=== PATIENT | male | born 1945 | race Caucasian/White ===

== ENCOUNTER 2018-01-30 07:51 | Emergency (ER) | payer OTHER ==
[2018-01-30 07:56] VITALS: BMI 31.9
--- NOTE | 2018-01-30 08:18 | PDOC ---
History of Present Illness - General Chief Complaint: Pain, Acute Stated Complaint: LIFT SIDE PAIN Time Seen by Provider: 01/30/18 08:18 History Source: Patient Exam Limitations: No Limitations - History of Present Illness Initial Comments: 01/30/18 08:41 72 year old male with PMH prostate enlargement, recent negative prostate biopsy , HTN presents to ED complaining of left flank pain and urinary retention since 0300 today. Pt denies fever, chills, dysuria, hematuria, nausea, vomiting, diarrhea, abdominal pain, weakness, numbness. PCP - Dr. Aviles Urologist - Dr. Stewart Allergies - NKDA Denies IV drug use, recreational drug use, ETOH use, and nicotine use. Past History - Past Medical History Allergies/Adverse Reactions: Allergies Allergy/AdvReac Type Severity Reaction Status Date / Time No Known Allergies Allergy Verified 01/30/18 07:56 Home Medications: Ambulatory Orders Losartan Potassium 50 mg PO DAILY 01/30/18 Propranolol HCl 60 mg PO DAILY 01/30/18 Tamsulosin HCl [Flomax] 0.4 mg PO DAILY 4 Days #4 capsule 01/30/18 COPD: No HTN: Yes Other medical history: enlarged prostate - Suicide/Smoking/Psychosocial Hx Smoking History: Never smoked Review of Systems - Review of Systems Able to Perform ROS?: Yes Comments:: 01/30/18 08:43 General: denies fever, chills, night sweats, generalized weakness. HEENT: denies sore throat, rhinorrhea, ear pain. Heart: denies chest pain, palpitations, syncope, lower extremity swelling. Respiratory: denies shortness of breath, cough, sputum production, hematemesis. Abdomen: denies abdominal pain, nausea, vomiting, diarrhea, constipation, blood in stool. : admits to urinary frequency and urinary incontinence. denies dysuria, hematuria. Back: admits to left flank pain. Musculoskeletal: denies joint pain, muscle pain, joint swelling. Neurological: denies headache, dizziness, numbness, tingling, weakness. Skin: denies rash, laceration, abrasion. *Physical Exam - Vital Signs Last Vital Signs Temp Pulse Resp BP Pulse Ox 98.1 F 57 L 18 150/84 97 01/30/18 07:52 01/30/18 07:52 01/30/18 07:52 01/30/18 07:52 01/30/18 07:52 - Physical Exam Comments: 01/30/18 08:45 Appearance: comfortable. HEENT: head is normocephalic, atraumatic. EOMI. PERRLA. Neck: supple. Full ROM. Heart: regular rhythm. no murmurs, rubs or gallops. Lungs: clear to auscultation bilaterally. no crackles, rhonchi or wheezing. no stridor. Abdomen: soft, nontender. normal bowel sounds. no rebound, guarding, masses. Back: no CVA tenderness bilaterally. Extremities: Peripheral pulses intact. No lower extremity edema. Neurological: Alert. Oriented x3. CN 2-12 grossly intact. Moves all four extremities. Skin: no rash to back or bilateral flank area. Heart Score/ECG Review - ECG Impressions Comment:: 01/30/18 10:04 Rate 61, regular rhythm, left axis, no acute ST changes. ED Treatment Course - LABORATORY CBC & Chemistry Diagram: 01/30/18 08:44 01/30/18 08:44 Medical Decision Making - Medical Decision Making 01/30/18 08:46 72 year old male with PMH prostate enlargement, recent negative prostate biopsy presents to ED complaining of left flank pain, urinary retention since 0300 today. Denies diabetes, IV drug use, fall, injury, rash. No CVA tendeness, no abdominal tenderness. Initial Vital Signs Temp Pulse Resp BP Pulse Ox 98.1 F 57 L 18 150/84 97 01/30/18 07:52 01/30/18 07:52 01/30/18 07:52 01/30/18 07:52 01/30/18 07:52 Afebrile. Bradycardic at 57. No hypotension. No hypoxia. Archibald placed for urinary retention. Pending labs, UA, UC. 01/30/18 09:44 No kidney failure - Cr 1.3, BUN 22. UA - 3+ blood, no leukocyte esterase. Pending CT abdomen noncontrast. IV fluids given. 01/30/18 09:57 No leukocytosis. *DC/Admit/Observation/Transfer Diagnosis at time of Disposition: Kidney stone - Discharge Dispostion Disposition: HOME Condition at time of disposition: Improved Decision to Admit order: No - Prescriptions Prescriptions: Tamsulosin HCl [Flomax] 0.4 mg PO DAILY 4 Days #4 capsule - Referrals Referrals: Franki Aviles MD [Primary Care Provider] - - Patient Instructions Printed Discharge Instructions: DI for Kidney Stones Additional Instructions: You were seen today for flank pain. A archibald catheter was placed into your urinary bladder and removed. Your labwork revealed no kidney dysfunction, no urinary tract infection. Your CT abdomen revealed a kidney stone. You were given Toradol for pain and intravenous fluids for hydration. You have been prescribed Flomax. Drink lots of water to stay hydrated. Please follow up with your primary care doctor within 7 days, and bring your paperwork given to you today with you. Please follow up with a urologist within 7 days, and bring your paperwork given to you today with you. Please return to the Emergency Department if you see blood in the catheter collecting system, develop fever, chills, nausea, vomiting, abdominal pain, chest pain, shortness of breath, lower leg swelling, mental status changes, urinary retention or any other new, worsening or concerning symptoms. - Post Discharge Activity
[2018-01-30 09:08] LABS: URINE APPEARANCE CLEAR; URINE BILIRUBIN NEGATIVE (<2.0 mg/dL); URINE COLOR YELLOW; URINE GLUCOSE (UA) NEGATIVE (NEGATIVE); URINE KETONE NEGATIVE (NEGATIVE); URINE LEUK ESTERASE NEGATIVE (NEGATIVE); URINE NITRITE NEGATIVE (NEGATIVE); URINE PROTEIN NEGATIVE (NEGATIVE); URINE UROBILINOGEN NEGATIVE mg/dL (0.2-1.0)
[2018-01-30 09:16] LABS: ANION GAP 6 (8-16); BILIRUBIN,TOTAL 1.2 mg/dL (0.2-1.0); BLOOD UREA NITROGEN 22 mg/dL (7-18); CALCIUM 9.2 mg/dL (8.5-10.1); CHLORIDE 106 mmol/L (98-107); CO2 28 mmol/L (21-32); CREATININE 1.3 mg/dL (0.7-1.3); GLUCOSE,RANDOM 137 mg/dL (74-106); POTASSIUM 4.4 mmol/L (3.5-5.1); SGOT/AST 23 U/L (15-37); SGPT/ALT 36 U/L (12-78); SODIUM 140 mmol/L (136-145); TOT PROT 7.6 g/dl (6.4-8.2)
[2018-01-30 09:17] LABS: ALK PHOS 82 U/L (45-117)
[2018-01-30 09:38] LABS: HEMATOCRIT 42.8 % (35.4-49); HEMOGLOBIN 15.2 GM/dL (11.7-16.9); MCH 34.5 pg (25.7-33.7); MCHC 35.6 g/dl (32.0-35.9); MEAN PLT VOLUME 8.1 fl (7.5-11.1); PLATELET COUNT 165 K/MM3 (134-434); RBC 4.41 M/mm3 (4.00-5.60); RDW 12.9 % (11.9-15.9)
[2018-01-30 09:40] LABS: WHITE BLOOD COUNT 8.3 K/mm3 (4.0-10.0)
[2018-01-30] MEDS ORDERED: SODIUM CHLORIDE 1,000 ML IV STA (09:41)
[2018-01-30] MEDS ORDERED: KETOROLAC TROMETHAMINE 15 MG/ML VIAL IVPUSH ONE (11:58)
[2018-01-30] MEDS ORDERED: KETOROLAC TROMETHAMINE 15 MG/ML VIAL ONE (12:18)
[2018-01-30 12:57] VITALS: BP 126/73; PULSE 73; TEMP 98.5
--- NOTE | 2018-01-30 13:03 | PDOC ---
Attending Attestation - Resident Resident Name: Amita Bajwa - ED Attending Attestation I have performed the following: I have examined & evaluated the patient, The case was reviewed & discussed with the resident, I agree w/resident's findings & plan, Exceptions are as noted - HPI HPI: 01/30/18 13:01 72 M with h/o BPH and HTN presents to ED with L flank pain x 1 day. Pt states that he awoke with the pain this morning. It radiates from his flank to his groin. Denies N/V. Denies F/C. Denies diarrhea/constipation. Denies abdominal pain. Denies CP/SOB. States that the pain is constant. He reports that he was only able to urinate a small amount this morning. His last full void was last night. Denies having the urge to urinate. - Physicial Exam PE: 01/30/18 13:03 "GENERAL: Awake, alert, and fully oriented, in no acute distress. HEAD: No signs of trauma EYES: PERRLA, EOMI, sclera anicteric, conjunctiva clear ENT: Auricles normal inspection, hearing grossly normal, nares patent, oropharynx clear without exudates. Moist mucosa NECK: Nontender, no stepoffs, Normal ROM, supple, no lymphadenopathy, JVD, or masses LUNGS: Breath sounds equal, clear to auscultation bilaterally. No wheezes, and no crackles HEART: Regular rate and rhythm, normal S1 and S2, no murmurs, rubs or gallops ABDOMEN: + L CVAT, nontender abdomen, normoactive bowel sounds. No guarding, no rebound. No masses EXTREMITIES: Normal range of motion, no edema. No clubbing or cyanosis. No cords, erythema, or tenderness NEUROLOGICAL: Cranial nerves II through XII intact. 5/5 strength and sensation in all extremities, Normal speech, normal gait, normal cerebellar function SKIN: Warm, Dry, normal turgor, no rashes or lesions noted. " - Medical Decision Making 01/30/18 13:12 72 M with L flank pain and difficulty urinating x 1 day. Amin inserted with minimal urine output. Will evaluate for kidney stone with UA, CT. Pt with no infectious symptoms. Benign abdominal exam. - Labs, UA - CT - IVF, pain control 01/30/18 13:21 CT with L ureteral stone UA with no signs of infection Pt with pain well controlled Will f/u urology Pt is well appearing, with normal vitals. Clinically stable for DC at this time. I discussed the physical exam findings, ancillary test results and final diagnoses with the patient. I answered all of the patient's questions. The patient was satisfied with the care received and felt comfortable with the discharge plan and treatment plan. The patient agrees to follow up with the primary care physician within 24-72 hours.
--- NOTE | 2018-01-31 10:23 | EKG ---
Test Reason : Blood Pressure : / mmHG Vent. Rate : 061 BPM Atrial Rate : 061 BPM P-R Int : 198 ms QRS Dur : 116 ms QT Int : 424 ms P-R-T Axes : 059 -28 -04 degrees QTc Int : 426 ms NORMAL SINUS RHYTHM LEFT VENTRICULAR HYPERTROPHY WITH QRS WIDENING RIGHT BUNDLE BRANCH BLOCK ABNORMAL ECG WHEN COMPARED WITH ECG OF 17-MAR-2010 01:02, RBBB IS SEEN Confirmed by JES RAMOS, MOISES ([id number]) on 01/31/2018 10:23:12 AM Referred By: Confirmed By:MOISES ANDRE MD
== END 2018-01-30 12:55 | disposition home or self-care (01) ==
LOC: JER 07:51
PROC: 0T9B70Z Drainage of Bladder with Drainage Device, Via Natural or Artificial Opening (ICD-10-PCS; principal; 2018-01-30)
PROC: 3E0233Z Introduction of Anti-inflammatory into Muscle, Percutaneous Approach (ICD-10-PCS; 2018-01-30)
DX: N20.0 Calculus of kidney (principal); N40.0 Benign prostatic hyperplasia without lower urinary tract symptoms
CPT/HCPCS: 36415; 51702; 72192-TC; 74150-TC; 80053; 81003; 81015; 85027; 87086; 93005; 93010; 96374; 99283-25; J7030